=== PATIENT | male | born 1990 | race American Indian/Alaskan Native ===

== ENCOUNTER 2019-06-14 07:20 | Emergency (ER) | payer SELFPAY ==
--- NOTE | 2019-06-14 07:52 | Emergency Department Report ---
ED General Adult HPI - General Chief complaint: Urogenital-Male Stated complaint: FINGER POSSIBLE INFECTED Time Seen by Provider: 06/14/19 07:42 Source: patient Mode of arrival: Ambulatory Limitations: No Limitations - History of Present Illness Initial comments: This is a 29-year-old -[place] male who presents to the emergency room with discoloration and swelling to the right second finger for 1-2 weeks. Patient states he initially had a hangnail which she clipped while at work. Patient states a few hours later he noticed swelling of lateral nail bed of right 2nd finger. He reports pain initially which has now resolved. States he attempted to drain it himself with minimal improvement of symptoms. She also reports penile discharge that started yesterday. He denies testicular swelling or pain, pelvic pain, back pain, urinary frequency, urgency, or dysuria. Onset/Timin -: week(s) Location: upper extremity (right second distal finger) Radiation: non-radiation Severity scale (0 -10): 0 Consistency: intermittent Improves with: none Worsens with: none Associated Symptoms: denies other symptoms Treatments Prior to Arrival: none - Related Data Previous Rx's Medication Instructions Recorded Last Taken Type Doxycycline Hyclate [Doxycycline 100 mg PO Q12HR #14 tab 06/14/19 Unknown Rx Hyclate TAB] Allergies Allergy/AdvReac Type Severity Reaction Status Date / Time Penicillins Allergy Unknown Verified 06/14/19 07:32 ED Review of Systems ROS: Stated complaint: FINGER POSSIBLE INFECTED Other details as noted in HPI Constitutional: denies: chills, fever Respiratory: denies: cough, shortness of breath, wheezing Cardiovascular: denies: chest pain, palpitations Gastrointestinal: denies: abdominal pain, nausea, diarrhea Genitourinary: discharge. denies: urgency, dysuria, frequency, hematuria, testicular pain, testicular mass Skin: change in hair/nails (discoloration and swelling lateral right second nail). denies: rash, lesions Neurological: denies: headache, weakness, paresthesias Psychiatric: denies: anxiety, depression ED Past Medical Hx - Past Medical History Previous Medical History?: No - Surgical History Past Surgical History?: No - Social History Smoking Status: Current Every Day Smoker Substance Use Type: Alcohol, Marijuana - Medications Home Medications: Home Medications Medication Instructions Recorded Confirmed Last Taken Type Doxycycline Hyclate [Doxycycline 100 mg PO Q12HR #14 tab 06/14/19 Unknown Rx Hyclate TAB] ED Physical Exam - General Limitations: No Limitations General appearance: alert, in no apparent distress - Respiratory Respiratory exam: Present: normal lung sounds bilaterally. Absent: respiratory distress - Cardiovascular Cardiovascular Exam: Present: regular rate, normal rhythm. Absent: systolic murmur, diastolic murmur, rubs, gallop - Expanded Upper Extremity Exam Right Forearm Wrist exam: Present: normal inspection, full ROM Hand Wrist exam: Present: subungual hematoma (5-6 mm discoloration of the lateral nail, swollen, nontender) Neuro motor exam: Present: wrist extension intact, thumb opposition intact, thumb IP flexion intact, thumb adduction intact, fingers 2-5 abduction intact Neurosensory exam: Present: radial nerve intact, ulnar nerve intact, median nerve intact Vascular: Present: normal capillary refill, radial pulse - Back Exam Back exam: Absent: CVA tenderness (R), CVA tenderness (L) - Neurological Exam Neurological exam: Present: alert, oriented X3 - Expanded Neurological Exam Expanded Upper motor neuron: Justino Neglect: Normal, Pronator Drift: Normal, Babinski Sign: Normal, Sensory Extinction: Normal Sensory exam: Upper Extremity Light Touch: Normal, Upper Extremity Pin Prick: Normal, Upper Extremity Temperature: Normal, UE 2 Point Discrimination: Normal Motor strength exam: RUE: 5 - Psychiatric Psychiatric exam: Present: normal affect, normal mood - Skin Skin exam: Present: warm, dry, intact, normal color. Absent: rash ED Course Vital Signs 06/14/19 07:31 Temperature 98.5 F Pulse Rate 70 Respiratory 18 Rate Blood Pressure 121/71 O2 Sat by Pulse 98 Oximetry - I & D Right Distal Finger Type of Procedure: Simple Site: 5-6 mm Blade Size: 18 gauge single bevel needle I & D Procedure: betadine prep, sterile dressing applied Progress: The area was prepared and draped in the usual, sterile manner. The wound prepped with Betadine. A 18-gauge single bevel needle was used to bore one whole Center hematoma. Moderate amount of bloody drainage expressed. Nail color returned to normal color. Nail remained intact. Followup: The patient tolerated the procedure well without complications. Standard post-procedure care was explained and return precautions are given. ED Medical Decision Making - Medical Decision Making Patient is stable and examined by me. No acute signs of distress noted. There is a 5-6 mm subungual hematoma to the right second finger. A boring technique was performed with an 18-gauge single palpable needle. Moderate amount of blood expressed from the hole, a sterile gauze finger dressing was applied. Review note. Given Boostrix immunization. Empirically treated with Rocephin 250 mg IM and azithromycin 1 g by mouth once. Start doxycycline 100 mg by mouth twice a day 7 days. Educated patient on wound care and given handout. Instructed to have wound reassessed in 2-3 days. Patient agrees to ED plan of care. Discharged home and follow up with PCP in 2-3 days. Critical care attestation.: If time is entered above; I have spent that time in minutes in the direct care of this critically ill patient, excluding procedure time. ED Disposition Clinical Impression: Penile discharge, Exposure to STD Subungual hematoma of finger of right hand Qualifiers: Encounter type: initial encounter Qualified Code(s): S60.10XA - Contusion of unspecified finger with damage to nail, initial encounter Disposition: TO HOME OR SELFCARE Is pt being admited?: No Condition: Stable Instructions: Safe Sex (ED), Sexually Transmitted Diseases (ED), Subungual Hematoma (ED), Acute Wound Care (ED) Additional Instructions: Follow-up with your primary care doctor to have wound reassessed in 2-3 days. I have provided her with wound care instructions. Continue safe sexual intercourse. Follow up with Primary Care Provider or health department for full STD screen him. Return to ER if foul smelling discharge, swelling, or severe pa in to wound. Prescriptions: Doxycycline Hyclate [Doxycycline Hyclate TAB] 100 mg PO Q12HR #14 tab Referrals: [facility] [Outside] - 3-5 Days [facility] [Outside] - 3-5 Days [facility] [Outside] - 3-5 Days Forms: Work/School Release Form(ED) Time of Disposition: 09:18
[2019-06-14] MEDS ORDERED: LIDOCAINE-MPF (1%) 10 MG/1 ML VIAL 5 ML INFILTRATI ONE (09:22)
[2019-06-14] MEDS ORDERED: AZITHROMYCIN 250 MG TAB PO ONE (09:22)
[2019-06-14 09:34] VITALS: BP 120/82
== END 2019-06-14 09:32 | disposition home or self-care (01) ==
LOC: ED 07:20
DX: S60.121A Contusion of right index finger with damage to nail, initial encounter (principal); R36.9 Urethral discharge, unspecified; Z20.2 Contact with and (suspected) exposure to infections with a predominantly sexual mode of transmission; X58.XXXA Exposure to other specified factors, initial encounter; Y93.89 Activity, other specified; Y92.89 Other specified places as the place of occurrence of the external cause; Y99.8 Other external cause status
CPT/HCPCS: 11740; 96372; 99282; J0696

== ENCOUNTER 2019-09-20 20:58 | Emergency (ER) | payer SELFPAY ==
--- NOTE | 2019-09-21 04:55 | Emergency Department Report ---
ED ENT HPI - General Chief complaint: Sore Throat Stated complaint: SORE THROAT Time Seen by Provider: 09/21/19 03:50 Source: patient Mode of arrival: Ambulatory Limitations: No Limitations - History of Present Illness Initial comments: 29-year-old -Surinames[place] male patient presents with complaints of sore throat and body aches x 3 days. He rates his pain as a 10/10 in severity and states that worsens with swallowing. Pain is relieved with Aleve temporarily. He denies any nausea/vomiting, rash, cough, chest shortness of breath, chest pain, or difficulty opening his jaw. He reports he has had a tactile fever - Related Data Previous Rx's Medication Instructions Recorded Last Taken Type Doxycycline Hyclate [Doxycycline 100 mg PO Q12HR #14 tab 06/14/19 Unknown Rx Hyclate TAB] Azithromycin [Zithromax TAB] 250 mg PO QDAY 5 Days #6 tablet 09/21/19 Unknown Rx predniSONE [Deltasone] 10 mg PO BID 1 Days #2 tab 09/21/19 Unknown Rx Allergies Allergy/AdvReac Type Severity Reaction Status Date / Time Penicillins Allergy Unknown Verified 06/14/19 07:32 ED Dental HPI - General Chief complaint: Sore Throat Stated complaint: SORE THROAT Time Seen by Provider: 09/21/19 03:50 Source: patient Mode of arrival: Ambulatory Limitations: No Limitations - Related Data Previous Rx's Medication Instructions Recorded Last Taken Type Doxycycline Hyclate [Doxycycline 100 mg PO Q12HR #14 tab 06/14/19 Unknown Rx Hyclate TAB] Azithromycin [Zithromax TAB] 250 mg PO QDAY 5 Days #6 tablet 09/21/19 Unknown Rx predniSONE [Deltasone] 10 mg PO BID 1 Days #2 tab 09/21/19 Unknown Rx Allergies Allergy/AdvReac Type Severity Reaction Status Date / Time Penicillins Allergy Unknown Verified 06/14/19 07:32 ED Review of Systems ROS: Stated complaint: SORE THROAT Other details as noted in HPI ED Past Medical Hx - Past Medical History Previous Medical History?: Yes Hx Seizures: Yes (last in 3rd grade) Hx Asthma: Yes - Surgical History Past Surgical History?: Yes Additional Surgical History: ears. "private area" - Social History Smoking Status: Current Every Day Smoker - Medications Home Medications: Home Medications Medication Instructions Recorded Confirmed Last Taken Type Doxycycline Hyclate [Doxycycline 100 mg PO Q12HR #14 tab 06/14/19 Unknown Rx Hyclate TAB] Azithromycin [Zithromax TAB] 250 mg PO QDAY 5 Days #6 tablet 09/21/19 Unknown Rx predniSONE [Deltasone] 10 mg PO BID 1 Days #2 tab 09/21/19 Unknown Rx ED Physical Exam - General Limitations: No Limitations General appearance: alert, in no apparent distress - Head Head exam: Present: atraumatic, normocephalic - Eye Eye exam: Present: normal appearance. Absent: scleral icterus - ENT ENT exam: Present: mucous membranes moist - Expanded ENT Exam Expanded Mouth exam: Absent: drooling, trismus, muffled voice Throat exam: Positive: tonsillar erythema, tonsillomegaly, tonsillar exudate. Negative: R peritonsillar mass, L peritonsillar mass - Neck Neck exam: Present: full ROM, lymphadenopathy (tender, mild bilateral anterior cervical). Absent: meningismus - Respiratory Respiratory exam: Present: normal lung sounds bilaterally. Absent: respiratory distress - Cardiovascular Cardiovascular Exam: Present: regular rate, normal rhythm, normal heart sounds - Neurological Exam Neurological exam: Present: alert, oriented X3 - Psychiatric Psychiatric exam: Present: normal affect, normal mood - Skin Skin exam: Present: warm, dry, intact, normal color. Absent: rash ED Course Vital Signs 09/20/19 09/20/19 23:04 23:05 Temperature 99.2 F 99.2 F Pulse Rate 109 H 109 H Respiratory 22 22 Rate Blood Pressure 110/62 Blood Pressure 110/62 [Right] O2 Sat by Pulse 99 99 Oximetry ED Medical Decision Making - Medical Decision Making 29-year-old male patient here with complaints of 3 days of sore throat and body aches. Bilateral tonsillar erythema, swelling, and exudates noted on exam. No trismus, drooling, or hot potato voice noted. Vitals are normal. Patient is nontoxic-appearing and is stable for outpatient treatment of strep pharyngitis. Prescription for azithromycin and prednisone given. Recommend follow-up with primary care provider within 3-5 days. Discussed very strict return precautions in great detail with patient who verbalizes understanding. Critical care attestation.: If time is entered above; I have spent that time in minutes in the direct care of this critically ill patient, excluding procedure time. ED Disposition Clinical Impression: Strep pharyngitis Disposition: DC- TO HOME OR SELFCARE Is pt being admited?: No Condition: Stable Instructions: Strep Throat (ED) Prescriptions: predniSONE [Deltasone] 10 mg PO BID 1 Days #2 tab Azithromycin [Zithromax TAB] 250 mg PO QDAY 5 Days #6 tablet Referrals: STEFANY RAGLAND MD [Staff Physician] - 3-5 Days
[2019-09-21 05:14] VITALS: BP 143/76
== END 2019-09-21 05:29 | disposition home or self-care (01) ==
LOC: ED 20:58
DX: J02.0 Streptococcal pharyngitis (principal); J45.909 Unspecified asthma, uncomplicated; F17.200 Nicotine dependence, unspecified, uncomplicated; Z79.899 Other long term (current) drug therapy; Z88.0 Allergy status to penicillin